=== PATIENT | female | born 2000 | race Two or more races ===

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

== ENCOUNTER 2024-06-27 12:41 | Emergency (ER) | payer OTHER ==
[~2024-06-27] VITALS: Ht 149.9 cm; Wt 64.4 kg
[~2024-06-27 12:41] MED LIST: ZYRTEC10 M3 PO
[2024-06-27] MEDS ORDERED: KETOROLAC TROMETHAMINE 60 MG VIAL IM STA (14:02)
== END 2024-06-27 15:45 | disposition home or self-care (01) ==
LOC: ER 12:43
DX: S93.105A Unspecified dislocation of left toe(s), initial encounter (principal); X58.XXXA Exposure to other specified factors, initial encounter; Y93.89 Activity, other specified; Y92.89 Other specified places as the place of occurrence of the external cause; Y99.9 Unspecified external cause status